=== PATIENT | female | born 1955 | race Caucasian/White ===

== ENCOUNTER 2018-04-04 09:58 | Outpatient (CLI) | payer OTHER | END 2018-04-04 09:59 | disposition home or self-care (01) | LOC: BICMAMMO 09:58 | PROVIDERS: ATTEND Family Medicine | DX: Z12.31 Encounter for screening mammogram for malignant neoplasm of breast (principal); M81.8 Other osteoporosis without current pathological fracture; M85.89 Other specified disorders of bone density and structure, multiple sites; Z80.3 Family history of malignant neoplasm of breast | CPT/HCPCS: 77063; 77067; 77080 ==

== ENCOUNTER 2019-04-07 09:38 | Outpatient (CLI) | payer MEDICARE ==
--- NOTE | 2019-04-07 11:56 | MMO ---
Bilateral MAMMO Bilat Screen [id number]. CLINICAL HISTORY: Patient is 64 years old and is seen for screening. The patient has no personal history of cancer. The patient has a history of left needle biopsy in 1992 - benign. VIEWS: The views performed were: bilateral craniocaudal with tomosynthesis and bilateral mediolateral oblique with tomosynthesis. FILMS COMPARED: The present examination has been compared to prior imaging studies performed at [facility] on 04/03/2016, 04/03/2017 and 04/04/2018, and at [facility] [place] on 09/10/2013. MAMMOGRAM FINDINGS: There are scattered fibroglandular densities. There are no suspicious masses, suspicious calcifications, or new areas of architectural distortion. IMPRESSION: THERE IS NO MAMMOGRAPHIC EVIDENCE OF MALIGNANCY. THERE ARE NO SUSPICIOUS MASSES, CALCIFICATIONS OR AREAS OF ARCHITECTURAL DISTORTION. THERE ARE BENIGN APPEARING CALCIFICATIONS IN BOTH BREASTS. A ROUTINE FOLLOW-UP MAMMOGRAM IN 1 YEAR IS RECOMMENDED. THE RESULTS OF THIS EXAM WERE SENT TO THE PATIENT. ACR BI-RADS Category 2 - Benign finding MAMMOGRAPHY NOTE: 1. A negative mammogram report should not delay a biopsy if a dominant of clinically suspicious mass is present. 2. Approximately 10% to 15% of breast cancers are not detected by mammography. 3. Adenosis and dense breasts may obscure an underlying neoplasm. Reported by: TAYLOR AMIN MD Electonically Signed: [id number]
--- NOTE | 2019-04-08 08:23 | BD ---
EXAM: DEXA bone density examination HISTORY: 64-year-old postmenopausal female for screening COMPARISON: 04/04/2018 FINDINGS: L1--bone mineral density 0.838 g/sq cm; T score -1.4 L2--bone mineral density 0.960 g/sq cm; T score -0.6 L3--bone mineral density 0.944 g/sq cm; T score -1.3 L4--bone mineral density 0.945 g/sq cm; T score -1.1 Total L1-L4--bone mineral density 0.922 g/sq cm; T score -1.1 Left femoral neck--bone mineral density0.618; T score -2.1 Total proximal left femur--bone mineral density 0.787; T score -1.3 Right femoral neck--bone mineral density0.616; T score -2.1 Total proximal right femur--bone mineral density 0.777; T score -1.4 IMPRESSION: Osteopenia This patient has a 10 year WHO fracture risk of a major osteoporotic fracture of 31% and of a hip fracture of 3.3%.
== END 2019-04-07 09:39 | disposition home or self-care (01) ==
LOC: BICMAMMO 09:38
PROVIDERS: ATTEND Nurse Practitioner Family
DX: Z12.31 Encounter for screening mammogram for malignant neoplasm of breast (principal); M81.8 Other osteoporosis without current pathological fracture; M85.89 Other specified disorders of bone density and structure, multiple sites
CPT/HCPCS: 77063; 77067; 77080

== ENCOUNTER 2021-04-17 12:36 | Outpatient (CLI) | payer MEDICARE | END 2021-04-17 12:37 | disposition home or self-care (01) | LOC: BICMAMMO 12:36 | PROVIDERS: ATTEND Family Medicine | DX: Z12.31 Encounter for screening mammogram for malignant neoplasm of breast (principal); Z91.89 Other specified personal risk factors, not elsewhere classified | CPT/HCPCS: 77063; 77067 ==